=== PATIENT | male | born 1995 | race Caucasian/White ===

== ENCOUNTER 2017-01-30 18:24 | Emergency (ER) | payer BC ==
[2017-01-30 19:16] VITALS: BP 125/75
[2017-01-30] MEDS ORDERED: Tetracaine 0.5% OPTH.SOL 4 ML* 1 DROP BTL ONE (19:24)
[2017-01-30] MEDS ORDERED: Fluorescein Sodium TOPICAL* 1 MG TEST ONE (19:24)
[2017-01-30] MEDS ORDERED: Eye Irrigation Solution 30 ML BOTTLE ONE (19:25)
--- NOTE | 2017-01-30 21:02 | UC ---
Eye Complaint HPI - HPI Summary HPI Summary: LEFT EYE REDNESS AND SWELLING WITH ITCHING AND BURNING AND THICK CRUSTY DISCHARGE SINCE THIS MORNING. WORKS [employer]. INJURY UNKNOWN - History of Current Complaint Chief Complaint: UCEye Stated Complaint: LEFT EYE Time Seen by Provider: 01/30/17 19:11 Hx Obtained From: Patient Onset/Duration: Sudden Onset, Lasting Hours, Still Present Timing: Intermittent Episode Lasting Severity Initially: Mild Severity Currently: Mild Pain Intensity: 2 Pain Scale Used: 0-10 Numeric Location of Injury: Conjunctiva Character: Dull Associated Signs And Symptoms: Positive: Drainage (Purulent) - Risk Factors Penetrating Injury Risk Factor: Negative Acute Glaucoma Risk Factors: Negative Optic Artery Occlusion Risk Factors: Negative - Allergies/Home Medications Allergies/Adverse Reactions: Allergies Allergy/AdvReac Type Severity Reaction Status Date / Time Sulfa Antibiotics Allergy Unknown Unknown Verified 01/30/17 19:06 Reaction Details Home Medications: Home Medications Sertraline* [Zoloft*] 75 mg PO DAILY 01/30/17 [History Confirmed 01/30/17] buPROPion TAB* [Wellbutrin TAB*] 50 mg PO DAILY 01/30/17 [History Confirmed ] PMH/Surg Hx/FS Hx/Imm Hx Previously Healthy: Yes - Surgical History Surgical History: None - Family History Known Family History: Negative: Respiratory Disease - Social History Occupation: Employed Full-time Lives: With Family Alcohol Use: Weekly Substance Use Type: None Smoking Status (MU): Never Smoked Tobacco Type: Smokeless Tobacco Cessation Counseling: Patient Advised to Stop - SMOKELESS TOBACCO - Immunization History Most Recent Tetanus Shot: 10 YEARS AGO Review of Systems Constitutional: Negative Skin: Negative Eyes: Drainage, Eye Redness ENT: Nasal Discharge Respiratory: Negative Cardiovascular: Negative Gastrointestinal: Negative Genitourinary: Negative Motor: Negative Neurovascular: Negative Musculoskeletal: Negative Neurological: Negative Psychological: Negative All Other Systems Reviewed And Are Negative: Yes Physical Exam Triage Information Reviewed: Yes Appearance: Well-Appearing, No Pain Distress, Well-Nourished Vital Signs: Initial Vital Signs Temp 99.1 F 01/30/17 19:09 Pulse 96 01/30/17 19:09 Resp 18 01/30/17 19:09 BP 125/75 01/30/17 19:09 Pulse Ox 99 01/30/17 19:09 Vital Signs Reviewed: Yes Eyes: Positive: Conjunctiva Inflamed, Discharge, Other: - FLUROSCEN UPTAKE LEFT EYE FROM 3 OCLOCK TO 9 OCLOCK ENT Exam: Normal ENT: Positive: Normal ENT inspection, Hearing grossly normal, Pharynx normal, TMs normal Dental Exam: Normal Neck exam: Normal Neck: Positive: Supple, Nontender, No Lymphadenopathy Respiratory Exam: Normal Respiratory: Positive: Chest non-tender, Lungs clear, Normal breath sounds, No respiratory distress, No accessory muscle use Cardiovascular Exam: Normal Cardiovascular: Positive: RRR, No Murmur, Pulses Normal, Brisk Capillary Refill Abdominal Exam: Normal Abdomen Description: Positive: Nontender, No Organomegaly Musculoskeletal Exam: Normal Musculoskeletal: Positive: Strength Intact, ROM Intact Neurological Exam: Normal Psychological Exam: Normal Skin Exam: Normal Eye Complaint Course/Dx - Differential Dx/Diagnosis Differential Diagnosis/HQI/PQRI: Conjunctivitis, Corneal Abrasion Provider Diagnoses: LEFT EYE CONJUNCTIVITIS. LEFT EYE CORNEAL ABRASION Discharge - Discharge Plan Condition: Stable Disposition: HOME Prescriptions: Tobramycin 0.3% OPHTH.RAYA* 1 drop LEFT EYE Q4H #1 btl Patient Education Materials: Corneal Abrasion (ED), Conjunctivitis (ED) Referrals: Rita Burgos MD [Primary Care Provider] -
== END 2017-01-30 19:58 | disposition home or self-care (01) ==
LOC: UCCORT 18:24
DX: H10.32 Unspecified acute conjunctivitis, left eye (principal); S05.02XA Injury of conjunctiva and corneal abrasion without foreign body, left eye, initial encounter; X58.XXXA Exposure to other specified factors, initial encounter; Y93.9 Activity, unspecified; Y92.9 Unspecified place or not applicable; Z88.2 Allergy status to sulfonamides
CPT/HCPCS: 99212; A9270-GY; G0463